=== PATIENT | male | born 1965 ===

== ENCOUNTER 2019-11-03 12:35 | Outpatient (CLI) | payer OTHER ==
--- NOTE | 2019-11-03 14:53 | MRI ---
MRI LEFT SHOULDER PERFORMED WITHOUT CONTRAST ENHANCEMENT: Date: 11/03/2019 HISTORY: Left shoulder pain. FINDINGS: There is moderate arthrosis of the AC joint. There are tendinosis changes of the supraspinatus tendon. There is some increased signal change along the undersurface of the tendon which is not true fluid density. This is probably related to tendinos is and a low grade undersurface tear with some granulation. The infraspinatus tendon shows some mild bursal-sided signal change which would suggest some bursal-sided fraying. The acromion is slightly la terally downsloping. The subscapularis muscle and tendon are intact with biceps tendon being in normal position within the bicipital groove. There is increased signal change and irregularity to the undersurface of the superior labrum directly posterior to the biceps anchor. This is compatible with a SLAP-type tear, probably more of a chronic type SLAP tear with scar. There is some mild tendinosis of the interarticular portion of the biceps tendon. Inferior glenohumeral ligamentous and labral complex is unremarkable. There is some hypertrophied appearing middle glenohumeral ligament incidentally noted. IMPRESSION: 1. Low grade undersurface tear of the anteriormost aspect of the supraspinatus tendon with what appe ars to be some granulation along the undersurface. There is also some minimal bursal-sided signal krishna nge of the infraspinatus tendon near the musculotendinous junction suggesting some mild bursal-sided fraying. 2. SLAP-type tear of the superior labrum. This is felt to be more chronic in nature. POS: JIMY
== END 2019-11-03 12:36 | disposition home or self-care (01) ==
LOC: BICMRI 12:35
PROVIDERS: ATTEND Orthopaedic Surgery
DX: M75.102 Unspecified rotator cuff tear or rupture of left shoulder, not specified as traumatic (principal); M75.22 Bicipital tendinitis, left shoulder; S43.432A Superior glenoid labrum lesion of left shoulder, initial encounter